=== PATIENT | male | born 1980 | race Caucasian/White ===

== ENCOUNTER 2020-04-22 09:14 | Emergency (ER) | payer OTHER ==
[~2020-04-22] VITALS: Ht 185.4 cm; Wt 92.6 kg
--- NOTE | 2020-04-22 09:33 | NUR ---
RIGHT LEG SWOLLEN, AND RED, SENT BY URGENT CARE FOR POSSIBLE DVT PATIENT NOTED A POP AND BRIEF PERIOD OF PAIN IN KNEE WHILE STRETCHING. THEN 2 DAYS LATER GENERALIZED LEG SWELLING, NOW WITH PINPOINT PAIN IN RIGHT UPPER THIGH DISTAL DP PULSE 2+, NO CHEST PAIN/SOB
--- NOTE | 2020-04-22 09:55 | NUR ---
ultrasound at bedside
[2020-04-22] MEDS ORDERED: RIVAROXABAN 15 MG TABLET PO ONE (11:00)
--- NOTE | 2020-04-22 11:10 | NUR ---
Medicated per emar Teach back successful on indications, activity restrictions, medication instructions and sxs of worsening claudication or bleeding
[2020-04-22 11:12] VITALS: BP 138/73
== END 2020-04-22 11:14 | disposition home or self-care (01) ==
LOC: ED 10:21
DX: I82.411 Acute embolism and thrombosis of right femoral vein (principal); I82.431 Acute embolism and thrombosis of right popliteal vein
CPT/HCPCS: 99284

== ENCOUNTER → 2020-07-22 | Outpatient (CLI) | payer OTHER | END | disposition home or self-care (01) | LOC: CFH 16:02 → EDSTATUS 16:15 | PROVIDERS: ATTEND Physician Assistant | DX: I82.4Y1 Acute embolism and thrombosis of unspecified deep veins of right proximal lower extremity (principal); I82.4Z1 Acute embolism and thrombosis of unspecified deep veins of right distal lower extremity; Z76.0 Encounter for issue of repeat prescription ==